=== PATIENT | male | born 1960 | race Caucasian/White ===

== ENCOUNTER → 2017-06-17 | Outpatient (CLI) | payer OTHER ==
[~2017-06-17] MED LIST: CIPR-255 PO; HYDR-5688 PO; IBUP-1050 PO; SULF800T23 PO
== END | disposition home or self-care (01) ==
LOC: C.LABSPEC 15:34
PROVIDERS: ATTEND Urology
DX: N20.0 Calculus of kidney (principal)

== ENCOUNTER 2017-07-06 07:00 | Day surgery (SDC) | payer OTHER ==
[2017-06-24 08:48] VITALS: BMI 23.0
--- NOTE | 2017-06-24 09:35 | DIAGNOSTIC IMAGING REPORT ---
CHEST PREADMISSION(PA/LAT) CLINICAL HISTORY: 56 years-old Male presenting with preoperative assessment. TECHNIQUE: PA and lateral views of the chest were obtained. COMPARISON: Chest CT from 03/17/2016. FINDINGS: Cardiomediastinal silhouette normal. Coarsened lung markings with mild hyperinflation.. Focal lung nodule in the right mid to lower lung measuring 6 mm. No pleural effusion or pneumothorax. Osseous structures and upper abdomen normal. IMPRESSION: 1. Mild hyperinflation and coarsened lung markings likely indicate emphysema. 2. 6 mm right lung nodule. Multiple bilateral lung nodules noted on chest CT from 03/17/2016. Follow-up per Fleischner Society 2017 recommendations below. Please refer to below summary of Fleischner Society 2017 recommendations for follow-up of incidental CT nodules (Jennifer Kim et al. Guidelines for management of incidental pulmonary nodules detected on CT images: From the Fleischner Society 2017. Radiology 2017; 284: 228-243.) SOLID NODULES Single nodule; size <6 mm * Low risk patients: No routine follow-up * High risk patients: Optional CT at 12 months Single nodule; size 6-8 mm * Low risk patients: CT at 6-12 months, then consider CT at 18-24 months * High risk patients: CT at 6-12 months, then at 18-24 months Single nodule; size >8 mm * Either low or high risk patients: Considered CT at 3 months, PET/CT, or tissue sampling Multiple nodules; size <6 mm * Low risk patients: No routine follow up * High risk patients: Optional CT at 12 months Multiple nodules; size 6-8 mm * Low risk patients: CT at 3-6 months, then consider CT at 18-24 months * High risk patients: CT at 3-6 months, then at 18-24 months Multiple nodules; size >8 mm * Low risk patients: CT at 3-6 months, then consider at 18-24 months * High risk patients: CT at 3-6 months, then at 18-24 months Note: These guidelines apply to incidental nodules. These guidelines did not apply to patients younger than 35 years, immunocompromised patients, or patients with cancer. * Low risk patients: Minimal or absent history of smoking and/or other known risk factors * High risk patients: History of smoking, exposure to other carcinogens, emphysema, fibrosis, upper lobe location, family history of lung cancer, etc. * If a nodule up to 8 mm is partly solid or is ground glass further follow-up is required after 24 months to exclude possible slow growing adenocarcinoma SUBSOLID NODULES Single ground-glass nodule * Nodule size < 6 mm: No routine follow-up * Nodule size > or = 6 mm: CT at 6-12 months to confirm persistence, then CT every 2 years until 5 years Single part-solid nodule * Nodule size < 6 mm: No routine follow-up * Nodules size > or = 6 mm: CT at 3-6 months to confirm persistence. If unchanged and solid component remains < 6 mm, annual CT should be performed for 5 years Multiple nodules * Nodule size < 6 mm: CT at 3-6 months. If stable, consider CT at 2 and 4 years. * Nodules size > or = 6 mm: CT at 3-6 months. Subsequent management based on the most suspicious nodule(s) Electronically signed by: Mynor Frank M.D. 06/24/2017 9:34 AM Dictated Date/Time: 06/24/2017 9:31 AM
[2017-06-24 10:38] LABS: BASO % 0.4 %; BASO ABS # 0.03 K/uL (0-0.2); COMPLETE YES; EOS % 1.6 %; HEMATOCRIT 43.7 % (42-52); IG% 0.1 %; LYMPH % 41.9 %; LYMPH ABS # 3.24 K/uL (1.2-3.4); MEAN CELL VOLUME 86.2 fL (80-100); MEAN CORPUSCULAR HEMOGLOBIN 29.2 pg (25-34); MEAN CORPUSCULAR HGB CONC 33.9 g/dl (32-36); MONO % 7.5 %; NEUT % 48.5 %; PLATELET COUNT 229 K/uL (130-400); RED BLOOD COUNT 5.07 M/uL (4.7-6.1); WHITE BLOOD COUNT 7.74 K/uL (4.8-10.8)
[2017-06-24 10:42] LABS: URINE APPEARANCE CLEAR (CLEAR); URINE BILIRUBIN NEG (NEG); URINE COLOR YELLOW; URINE EPITHELIAL CELL AUTO 0-5 /lpf (0-5); URINE NITRITE NEG (NEG); URINE PH 6.5 (4.5-7.5); URINE SPECIFIC GRAVITY 1.012 (1.000-1.030); UROBILINOGEN NEG (NEG)
[2017-06-24 10:43] LABS: BUN/CREATININE RATIO 15.5 (10-20); CALCIUM 9.2 mg/dl (8.5-10.1); CREATININE 0.91 mg/dl (0.60-1.40); POTASSIUM 4.6 mmol/L (3.5-5.1)
[2017-06-24 10:44] LABS: MANUAL MICROSCOPIC REQUIRED? NO; REVIEW REQ? NO
[~2017-07-06] VITALS: Ht 177.8 cm; Wt 68.0 kg
[~2017-07-06 07:00] MED LIST changes: -CIPR-255 PO; +CIPROFLOXACIN / D5W 400 MG IV SCH; -HYDR-5688 PO; -IBUP-1050 PO; +LACTATED RINGER'S 1000ML 500 ML IV ONE; -SULF800T23 PO
[2017-07-06 07:22] VITALS: BP 161/93; PULSE 60; TEMP 36.6; O2SAT 99; Ht 177.8 cm; Wt 68.0 kg
[2017-07-06] MEDS ORDERED: LIDOCAINE HCL 2% 2 ML VIAL (20MG/ML) ONE (08:02)
[2017-07-06] MEDS ORDERED: PROPOFOL IV EMULSION 10 MG/ML 20 ML VIAL IV ONE (08:02)
[2017-07-06] MEDS ORDERED: MIDAZOLAM HCL 1 MG/ML 2ML VIAL ONE (08:02)
[2017-07-06] MEDS ORDERED: DEXAMETHASONE SOD INJ 4 MG/ML VIAL ONE (08:02)
[2017-07-06] MEDS ORDERED: ONDANSETRON INJ 2 MG/ML 2 ML VIAL ONE (08:02)
[2017-07-06] MEDS ORDERED: FENTANYL CITRATE INJ 50 MCG/1 ML 2 ML VIAL ONE (08:03)
--- NOTE | 2017-07-06 08:26 | History & Physical Bridge Note ---
H&P Re-Evaluation Bridge Note: I have examined the patient, reviewed the History & Physical and in the interval since the performance of the History & Physical I have noted the following changes of clinical significance: No changes noted
[2017-07-06] MEDS ORDERED: CONRAY 30% 150ML BOTTLE ONE (08:32)
[2017-07-06] MEDS ORDERED: ATROPINE SULFATE 0.1 MG/ML 5ML SYR IV PRN (08:45)
[2017-07-06] MEDS ORDERED: LABETALOL HCL IV 5 MG/ML 20ML IV PRN (08:45)
[2017-07-06] MEDS ORDERED: ONDANSETRON INJ 2 MG/ML 2 ML VIAL IV PRN (08:45)
[2017-07-06] MEDS ORDERED: KETOROLAC TROMETHAMINE 30 MG/ML VIAL IV. PRN (08:45)
--- NOTE | 2017-07-06 08:49 | Discharge Instructions ---
Discharge Instructions Date of Service Jul 06, 2017. Admission Reason for Admission: Stones Discharge Discharge Diagnosis / Problem: stones Discharge Goals Goal(s): Decrease discomfort, Improve function, Increase independence, Improve disease control Activity Recommendations Activity Limitations: resume your previous activity Lifting Limitations: none Exercise/Sports Limitations: none May Resume Sexual Activity: when tolerated Shower/Bathe: no limitations Driving or Machine Use: no limitations . None Discharge Diet Recommended Diet: Regular Diet Pending Studies Studies pending at discharge: no Medical Emergencies . Who to Call and When: Medical Emergencies: If at any time you feel your situation is an emergency, please call 911 immediately. . Non-Emergent Contact Non-Emergency issues call your: Urologist Call Non-Emergent contact if: you have a fever, temperature is above 101.5, your pain is worsening . . "Provider Documentation" section prepared by Jerrell Rosario. . VTE Core Measure Inpt VTE Proph given/why not?: Treatment not indicated [place] Drug Monitoring Program Search Results: patient reviewed within database, no issues identified
[2017-07-06] MEDS ORDERED: HYDR-5688 PO (08:51)
[2017-07-06] MEDS ORDERED: SULF800T23 PO (08:51)
[2017-07-06] MEDS ORDERED: KETOROLAC TROMETHAMINE 30 MG/ML VIAL ONE (08:58)
[2017-07-06] MEDS ORDERED: SODIUM CHLORIDE 0.9% 1000ML 1,000 ML IV SCH (09:44)
--- NOTE | 2017-07-06 09:44 | [facility] Operative Report ---
Operative Report Operative Date Jul 06, 2017. Pre-Operative Diagnosis Nephrolithiasis, gross hematuria Post-Operative Diagnosis Nephrolithiasis, gross hematuria Procedure(s) Performed Cystoscopy, Left Ureteroscopy, Laser Lithotripsy; Stent ([id number]) Surgeon Sridhar Lawyer Criminal Surgeon(s) none Estimated Blood Loss 2CC Findings Small stones in the left kidney having; some hematuria from the right renal unit Specimens None per surgeon Drains [id number] Anesthesia Gen. Complication(s) None Disposition Recovery Room / PACU Indications Hematuria; left flank pain Description of Procedure Car Dukes was identified in the preoperative holding area, appropriate informed consent reviewed and completed and the patient was transported to the operating suite. Of note he had a right-sided ureteroscopy last year secondary to hematuria. At that time had no tumors. He had active bleeding from the papilla of the kidney. He had resolution following that ureteroscopy however he has had a recurrence of hematuria albeit with left-sided flank pain this time. On CT he shows a very small stone within the left kidney, no filling defects, no masses. We've elected to perform a cystoscopy and left-sided ureteroscopy and potential laser lithotripsy today. Upon arrival in the operative suite he received appropriate preoperative antibiotics the form of ciprofloxacin. Adequate general anesthesia was achieved , and he was placed in dorsal lithotomy position where he was sterilely prepped and draped in standard fashion. I begin the case by passing a 22 Barbadian cystoscope with 30 lens per urethra. Inspection revealed no evidence of stricture disease. A state was moderately enlarged with lateral lobe hypertrophy. A full inspection of the bladder was carried out utilizing both a 30 and 70 lens. There were no tumors visualized. There is a small amount of blood in the dependent portion of the bladder. I observed efflux both kidneys which appear to be clear. I then turned my attention to the left ureteral orifice. I cannulated this orifice with a 10 Barbadian double-lumen catheter and two sensor wires. The wires advanced to the kidney without difficulty. After withdrawing the 10 Barbadian double-lumen catheter, I passed a flexible ureteroscope over 1 wire while reserving second wire as a safety wire. Full inspection of the kidney was carried out. There was no active bleeding appreciated. He has prominent papillae which were somewhat red in appearance but no bleeding. I did encounter a small stone in the most dependent portion of the kidney. I passed a 200 laser fiber and fragmented the stone. And performed a repeat renoscopy before performing a careful exit ureteroscopy. I then proceeded to place a 6 Barbadian by 26 cm double-J stent. A good curl in the kidney as well as the bladder. Before exiting the bladder I turned my attention again to the bladder, and noted a small amount of blood at the UO on the right. This increases my concern that his bleeding is still coming from the right side despite his left-sided pain. I elected not to pursue this today , however, if his hematuria does not improve or resolve following today's procedure I will consider re-offering a repeat ureteroscopy on the right. I attest to the content of the Intraoperative Record and any orders documented therein. Any exceptions are noted below.
[2017-07-06] MEDS ORDERED: ACETAMINOPHEN 325 MG TAB PO PRN (09:45)
[2017-07-06] MEDS ORDERED: OXYCODONE/ACETAMINOPHEN 5-325 TAB PO PRN ×2 (09:45)
[2017-07-06] MEDS: FENTANYL CITRATE INJ 50 MCG/1 ML 2 ML VIAL IV PRN ×2 (10:09→10:15)
[2017-07-06 10:37] VITALS: BP 157/96; PULSE 47; TEMP 36.4; O2SAT 98
--- NOTE | 2017-07-06 10:50 | Anesthesiology Progress Note ---
Anesthesia Post Op Note Date & Time Jul 06, 2017 at 10:50 Vital Signs Pain Intensity: 4 Vital Signs Past 12 Hours Date Time Temp Pulse Resp B/P (MAP) Pulse Ox O2 Delivery O2 Flow Rate FiO2 07/06/17 10:30 36.2 56 12 138/92 95 Nasal Cannula 07/06/17 10:20 63 13 128/84 92 Nasal Cannula 07/06/17 10:10 60 15 149/89 98 Room Air 07/06/17 10:00 59 13 130/87 99 Oxymask 10 07/06/17 09:50 84 12 104/73 98 Oxymask 10 07/06/17 09:40 36.4 56 12 82/42 (54) 97 Oxymask 10 07/06/17 07:22 36.6 60 20 161/93 (115) 99 Room Air Notes Mental Status: alert / awake / arousable, participated in evaluation Pt Amnestic to Procedure: Yes Nausea / Vomiting: adequately controlled Pain: adequately controlled Airway Patency, RR, SpO2: stable & adequate BP & HR: stable & adequate Hydration State: stable & adequate Anesthetic Complications: no major complications apparent
[2017-07-06 11:04] VITALS: BP 158/107; PULSE 52; O2SAT 97
[2017-07-06 11:50] VITALS: BP 144/94; PULSE 54; TEMP 36.5; O2SAT 97
== END 2017-07-06 12:12 | disposition home or self-care (01) ==
LOC: C.ACU 07:00
PROVIDERS: ATTEND Urology
DX: N20.0 Calculus of kidney (principal); R31.0 Gross hematuria; Z83.3 Family history of diabetes mellitus; Z82.49 Family history of ischemic heart disease and other diseases of the circulatory system; F17.200 Nicotine dependence, unspecified, uncomplicated

== ENCOUNTER → 2017-08-12 | Outpatient (CLI) | payer OTHER ==
[~2017-08-12] MED LIST changes: -CIPROFLOXACIN / D5W 400 MG IV SCH; +HYDR-5688 PO; -LACTATED RINGER'S 1000ML 500 ML IV ONE
== END | disposition home or self-care (01) ==
LOC: C.LABSPEC 15:20
PROVIDERS: ATTEND Urology
DX: N20.0 Calculus of kidney (principal)